=== PATIENT | female | born 1955 | race Caucasian/White ===

== ENCOUNTER 2016-12-04 09:20 | Day surgery (SDC) | payer BC ==
[~2016-12-04] VITALS: Ht 160 cm; Wt 64.5 kg
[~2016-12-04 09:20] MED LIST: ASPIRIN 81M81 MG/TA2 PO; NORCO 325 MG-51 TAB PO; PERCOCET 325 MG1 TA2 PO; TYLENOL 500MG500 MG PO; ZOCOR 40MG40 MG PO
[2016-12-04] MEDS ORDERED: ARIMIDEX1 MG PO (09:51)
[2016-12-04] MEDS ORDERED: CLARITIN 1010 MG/TAB PO (09:51)
[2016-12-04] MEDS ORDERED: AZULFIDINE500 MG/TAB PO (09:52)
[2016-12-04 10:00] VITALS: BP 125/83; PULSE 93; TEMP 98.7
[2016-12-04 10:50] VITALS: BP 107/67; PULSE 101; TEMP 98.3
[2016-12-04 11:05] VITALS: BP 106/70; PULSE 100
[2016-12-04 11:20] VITALS: BP 106/70; PULSE 88
[2016-12-04] MEDS ORDERED: PREDNISONE20 MG PO (11:25)
[2016-12-04] MEDS ORDERED: LIALDA 1.2 GM1.2 GM PO (11:26)
[2016-12-04 13:42] VITALS: BP 99/60; PULSE 91
== END 2016-12-04 11:50 | disposition home or self-care (01) ==
LOC: SDCO 09:20
DX: K51.911 Ulcerative colitis, unspecified with rectal bleeding (principal); K92.1 Melena; D12.5 Benign neoplasm of sigmoid colon; D64.9 Anemia, unspecified; E78.00 Pure hypercholesterolemia, unspecified; Z90.10 Acquired absence of unspecified breast and nipple; Z85.3 Personal history of malignant neoplasm of breast; Z87.891 Personal history of nicotine dependence; Z86.010 Personal history of colon polyps
CPT/HCPCS: J2250; J2405; J3010; J7030

== ENCOUNTER → 2020-04-23 | Outpatient (CLI) | payer MEDICARE ==
[~2020-04-23] MED LIST changes: +ARIMIDEX1 MG PO; +AZULFIDINE500 MG/TAB PO; +CLARITIN 1010 MG/TAB PO; +LIALDA 1.2 GM1.2 GM PO; +PREDNISONE20 MG PO
== END ==
LOC: MC.RAD 08:00
DX: N63.22 Unspecified lump in the left breast, upper inner quadrant (principal); N64.1 Fat necrosis of breast; N61.0 Mastitis without abscess; Z98.82 Breast implant status; Z90.12 Acquired absence of left breast and nipple; Z85.3 Personal history of malignant neoplasm of breast